=== PATIENT | male | born 1990 | race Caucasian/White ===

== ENCOUNTER 2016-08-10 11:17 | Inpatient (IN) | payer OTHER ==
[~2016-08-10] VITALS: Ht 177.8 cm; Wt 72.3 kg
[~2016-08-10 11:17] MED LIST: ATIVAN1 MG PO; BACTRIM DS 8001 TA1 PO; CIPROFLOXACIN500 MG PO; CLONIDINE0.1 MG PO; FLEXERIL10 MG PO; KEFLEX500 MG PO; LEVAQUIN750 MG PO; LOMOTIL 0.025 M1 TA1 PO; MOTRIN800 MG PO; NAPROSYN500 MG PO; NKHM; PERCOCET 325 MG1 TA2 PO; PHENERGAN25 M1 PO; PREDNISONE20 MG PO; SUBOXONE 8 MG-21 TA2 SL; ZITHROMAX250 MG PO; ZOFRAN ODT4 MG SL
[2016-08-10 11:50] VITALS: BP 177/48
[2016-08-10 12:32] LABS: BASO # 0.1 10*3/uL (0.0-0.1); BASO % 0.7 % (0.0-1.0); EOS # 0.4 10*3/uL (0.0-0.4); EOS % 4.8 % (1.0-4.0); HEMATOCRIT 40.2 % (42.0-52.0); HEMOGLOBIN 13.5 g/dl (14.0-18.0); LYMPH # 2.6 10*3/uL (1.3-4.4); LYMPH % 34.2 % (27.0-41.0); MEAN CELL VOLUME 86.3 fl (80.0-94.0); MEAN CORPUSCULAR HGB CONC 33.6 g/dl (33.0-37.0); MEAN PLATELET VOLUME 10.1 fl (9.6-12.3); MONO # 0.7 10*3/uL (0.1-1.0); MONO % 8.8 % (3.0-9.0); NEUT # 3.9 10*3/uL (2.3-7.9); NEUT % 51.2 % (47.0-73.0); PLATELET COUNT AUTOMATED 247 10*3/uL (130-400); RED BLOOD COUNT 4.66 10*6/uL (4.50-5.90); RED CELL DISTRI WIDTH 14.6 % (0-14.5); WHITE BLOOD COUNT 7.5 10*3/uL (4.8-10.8)
[2016-08-10 12:38] LABS: INTERNATIONAL NORM RATIO 0.9 (2.0-3.5)
[2016-08-10 12:42] LABS: ALBUMIN 3.6 gm/dl (3.1-4.5); ALKALINE PHOSPHATASE 62 U/L (45-117); BILIRUBIN, TOTAL 0.3 mg/dl (0.2-1.0); BUN 9 mg/dl (7-24); CARBON DIOXIDE 29 mmol/L (21-32); CHLORIDE 104 mmol/L (98-107); EST GLOM FILT AFRICAN AMERICAN > 60 ml/min; GLUCOSE 104 mg/dL (65-99); POTASSIUM 4.1 mmol/L (3.5-5.1); SGOT/AST 25 IU/L (3-35); SGPT/ALT 38 U/L (12-78); SODIUM 141 mmol/L (136-145); TOTAL PROTEIN 6.8 gm/dL (6.4-8.2)
[2016-08-10 12:50] LABS: BILIRUBIN NEGATIVE (NEGATIVE); BLOOD NEGATIVE (NEGATIVE); CLARITY SL CLOUDY (CLEAR); COLOR YELLOW (YELLOW); GLUCOSE NEGATIVE (NEGATIVE); KETONE NEGATIVE (NEGATIVE); LEUKO ESTERASE TRACE (NEGATIVE); NITRITE POSITIVE (NEGATIVE); PH 6.5 (5.0-9.0); PROTEIN NEGATIVE (NEGATIVE); SPECIFIC GRAVITY 1.015 (1.005-1.030); UROBILINOGEN 0.2 E.U./dl (0.2-1.0)
[2016-08-10 12:59] LABS: BACTERIA 2+
[2016-08-10 13:00] LABS: URINE REFLEX COMMENT YES (NO)
[2016-08-10 13:01] LABS: URINE AMPHETAMINES < 1000 (1000ng/ml); URINE BARBITURATES < 200 (200ng/ml); URINE COCAINE > 300 (300ng/ml)
[2016-08-10 16:00] VITALS: BP 116/59; BP 180/60
[2016-08-10 20:00] VITALS: BP 121/54
[2016-08-11] VITALS: BP 101/51
[2016-08-11 08:00] VITALS: BP 108/58
[2016-08-11 12:00] VITALS: BP 110/58
[2016-08-11 16:00] VITALS: BP 113/59
[2016-08-11 20:00] VITALS: BP 115/60
[2016-08-12] VITALS: BP 96/42
[2016-08-12 04:00] VITALS: BP 97/46
[2016-08-12 08:00] VITALS: BP 116/58
== END 2016-08-12 12:26 | disposition left against medical advice (07) | DRG 894 ==
LOC: 4E 11:17
PROVIDERS: Internal Medicine
DX: F11.23 Opioid dependence with withdrawal (principal); F14.10 Cocaine abuse, uncomplicated; G25.81 Restless legs syndrome; D64.9 Anemia, unspecified; F17.210 Nicotine dependence, cigarettes, uncomplicated; Z88.0 Allergy status to penicillin

== ENCOUNTER 2017-04-11 10:39 | Emergency (ER) | payer OTHER ==
[~2017-04-11] VITALS: Ht 180.3 cm; Wt 72.6 kg
[2017-04-11] MEDS ORDERED: CLINDAMYCIN HC300 MG PO (13:52)
[2017-04-11] MEDS ORDERED: NAPROSYN500 MG PO (14:14)
== END 2017-04-11 14:34 | disposition home or self-care (01) ==
LOC: ED 10:39
DX: K02.9 Dental caries, unspecified (principal); F17.200 Nicotine dependence, unspecified, uncomplicated; Z88.0 Allergy status to penicillin

== ENCOUNTER 2017-08-27 14:57 | Emergency (ER) | payer OTHER ==
[~2017-08-27] VITALS: Ht 177.8 cm; Wt 84.4 kg
[~2017-08-27 14:57] MED LIST changes: +CLINDAMYCIN HC300 MG PO
[2017-08-27] MEDS ORDERED: NEURONTIN300 MG PO (15:10)
[2017-08-27] MEDS ORDERED: NORCO 5-325 TA1 EACH PO (16:58)
== END 2017-08-27 17:05 | disposition home or self-care (01) ==
LOC: ED 14:57
DX: S32.030A Wedge compression fracture of third lumbar vertebra, initial encounter for closed fracture (principal); F17.200 Nicotine dependence, unspecified, uncomplicated; Z88.0 Allergy status to penicillin; V49.9XXA Car occupant (driver) (passenger) injured in unspecified traffic accident, initial encounter; Y93.89 Activity, other specified; Y92.488 Other paved roadways as the place of occurrence of the external cause; Y99.8 Other external cause status

== ENCOUNTER 2022-07-12 20:01 | Emergency (ER) | payer OTHER ==
[~2022-07-12] VITALS: Ht 177.8 cm; Wt 63.5 kg
[~2022-07-12 20:01] MED LIST changes: +NEURONTIN300 MG PO; +NORCO 5-325 TA1 EACH PO
[2022-07-12] MEDS ORDERED: SEPTDS PO (21:19)
== END 2022-07-12 21:33 | disposition left against medical advice (07) ==
LOC: ED 20:01
DX: L02.511 Cutaneous abscess of right hand (principal); Z88.0 Allergy status to penicillin; Z87.891 Personal history of nicotine dependence

== ENCOUNTER 2022-08-16 09:51 | Emergency (ER) | payer OTHER ==
[~2022-08-16] VITALS: Wt 72.6 kg
[~2022-08-16 09:51] MED LIST changes: +SEPTDS PO
[2022-08-16] MEDS ORDERED: BUPRENORPHINE-1 EAC1 SL (09:59)
[2022-08-16] MEDS ORDERED: CLEOCIN HCL150 MG PO (10:23)
== END 2022-08-16 10:34 | disposition home or self-care (01) ==
LOC: ED 09:51
DX: K08.89 Other specified disorders of teeth and supporting structures (principal); Z88.0 Allergy status to penicillin; F17.200 Nicotine dependence, unspecified, uncomplicated

== ENCOUNTER 2023-11-12 01:58 | Emergency (ER) | payer MEDICAID ==
[~2023-11-12] VITALS: Wt 73.0 kg
[~2023-11-12 01:58] MED LIST changes: +BUPRENORPHINE-1 EAC1 SL; +CLEOCIN HCL150 MG PO
[2023-11-12 03:14] LABS: BASO % 0.4 % (0.0-1.0); EOS % 0.3 % (1.0-4.0); HEMATOCRIT 43.7 % (42.0-52.0); LYMPH # 1.3 10*3/uL (1.3-4.4); LYMPH % 16.3 % (27.0-41.0); MEAN CORPUSCULAR HGB 26.1 pg (27.0-31.0); MEAN CORPUSCULAR HGB CONC 31.8 g/dl (33.0-37.0); MONO # 0.2 10*3/uL (0.1-1.0); NEUT # 6.1 10*3/uL (2.3-7.9); NEUT % 79.7 % (47.0-73.0); PLATELET COUNT AUTOMATED 251 10*3/uL (130-400); RED BLOOD COUNT 5.33 10*6/uL (4.50-5.90); RED CELL DISTRI WIDTH 14.5 % (0-14.5); WHITE BLOOD COUNT 7.7 10*3/uL (4.8-10.8)
[2023-11-12 03:32] LABS: ALKALINE PHOSPHATASE 85 U/L (46-116); BUN 10 mg/dl (9-23); CHLORIDE 107 mmol/L (98-107); SGPT/ALT 18 U/L (5-49); TOTAL PROTEIN 8.4 gm/dL (6.0-8.0)
[2023-11-12] MEDS ORDERED: CLINDAMYCIN HCL 300 MG CAPSULE PO ONE (04:10)
[2023-11-12] MEDS ORDERED: CLINDAMYCIN HC300 MG PO (04:37)
== END 2023-11-12 04:37 | disposition home or self-care (01) ==
LOC: ED 01:58
PROVIDERS: Internal Medicine
DX: S51.801A Unspecified open wound of right forearm, initial encounter (principal); L03.113 Cellulitis of right upper limb; X58.XXXA Exposure to other specified factors, initial encounter; Y93.89 Activity, other specified; Y92.89 Other specified places as the place of occurrence of the external cause; Y99.8 Other external cause status